=== PATIENT | female | born 2000 | race African-American/Black ===

== ENCOUNTER 2021-04-24 09:42 | Inpatient (IN) | payer MEDICAID ==
[2021-04-24] MEDS ORDERED: fentaNYL 100 MCG/2 ML INJ ONE (10:35)
--- NOTE | 2021-04-24 10:41 | Event Note ---
Date: 04/24/21 Called by RN at 1015am due to not having heart tones via doppler. Both charge nurse and labor and delivery nurse MD at bedised no heart tones noted by both prior to MD arriving. MD at bedside at 1017 and no heart tones notd. Bedside sonogram obtained by myself no heart movement seen. Abdomen very firm the entire time. Pt having cyclical pain. Official sonogram done. NO FCA could be seen. I advised pt and her fob that the likely had an abruption and has have had a demise which was now confirmed by 2 sonograms. I advised that the baby has . Pt screaming. FOB states that pt had some bleeding and pain that started at 6am. Bleeding was just spotting as per pt. Pt called office and was advised to f/u in triage JAY JAY. He states that pain got progressively worse and abdomen got hard. This is when they presented to hospital today. Will speak with pt regarding plan for delivery after her and fob have had time to process the information of the .
[2021-04-24] MEDS ORDERED: LACTATED RINGERS 1,000 ML ONE (10:42)
[2021-04-24 10:53] LABS: Hematocrit 26.8 % (30.3-42.9); Hemoglobin 8.5 gm/dl (10.1-14.3); Mean Corpuscular HGB Conc 32 % (30-34); Mean Corpuscular Volume 84 fl (79-97); Platelet Count 180 K/mm3 (140-440); Red Blood Count 3.21 M/mm3 (3.65-5.03); Red Cell Distribution Width 14.8 % (13.2-15.2)
[2021-04-24] MEDS ORDERED: LACTATED RINGERS 1000 ML IV SOLN IV SCH (11:00)
--- NOTE | 2021-04-24 11:02 | Ultrasound Report ---
ULTRASOUND OBSTETRIC LIMITED INDICATION / CLINICAL INFORMATION: decreased movement. TECHNIQUE: Transabdominal. COMPARISON: None available. FINDINGS: Single IUP without heart tones detected, compatible with demise. Heterogeneous placental echotexture with limited blood flow throughout the placenta, concerning for placental abruption. Ther e is no retroplacental hematoma identified. Information regarding the critical finding(s) was communicated to Dr. JESSICA VEGA MD by Dr. Marco Antonio Naranjo MD, via telephone on 04/24/2021 9:57 AM Signer Name: Venkatesh Naranjo MD Signed: 04/24/2021 10:58 AM Workstation Name: [id number]
[2021-04-24 11:13] LABS: Alanine Aminotransferase 21 units/L (7-56); Albumin 3.6 g/dL (3.9-5); Blood Urea Nitrogen 9 mg/dL (7-17); Calcium 9.3 mg/dL (8.4-10.2); Hemolysis Index 7
[2021-04-24 11:14] LABS: BUN/Creatinine Ratio 18
--- NOTE | 2021-04-24 11:22 | History and Physical Report ---
History of Present Illness Date of examination: 04/24/21 Date of admission: 04/24/21 Chief complaint: abdominal pain History of present illness: Called by RN at 1015am due to not having heart tones via doppler. Both charge nurse and labor and delivery nurse MD at bedised no heart tones noted by both prior to MD arriving. MD at bedside at 1017 and no heart tones notd. Bedside sonogram obtained by myself no heart movement seen. Abdomen very firm the entire time. Pt having cyclical pain. Official sonogram done. NO FCA could be seen. I advised pt and her fob that the likely had an abruption and has have had a demise which was now confirmed by 2 sonograms. I advised that the baby has . Pt screaming. FOB states that pt had some bleeding and pain that started at 6am. Bleeding was just spotting as per pt. Pt called office and was advised to f/u in triage JAY JAY. He states that pain got progressively worse and abdomen got hard. This is when they presented to hospital today. Will speak with pt regarding plan for delivery after her and fob have had time to process the information of the . Pt has been complicated by being a [employer] for [employer], being RH negative for which she got rhogam at 30 wks as well as had not antibodies at the time Rhogam given on 02/21/21 and finally by having poor weight gain and sono that showed lagging abdominal AC diagnosed at 32 wk visit on 04/16/21 for which referral for follow up with [facility] was generated on day of service one week ago. Past History - Obstetrical History Expected Date of Delivery: 06/08/21 Actual Gestation: 33 Week(s) 4 Day(s) : 1 Medications and Allergies Allergies Allergy/AdvReac Type Severity Reaction Status Date / Time No Known Allergies Allergy Unverified 04/24/21 10:03 Active Meds: Active Medications Fentanyl (Fentanyl 100 Mcg/2 Ml Inj) 100 mcg IV ONCE ONE Stop: 04/24/21 12:01 Lactated Ringer's (Lactated Ringers 1000 Ml Iv Soln) 1,000 ml IV DIRECT MARY - Vital Signs Vital signs: Vital Signs Pulse Ox 87 04/24/21 09:52 Temp Pulse Resp BP Pulse Ox 97.6 F 124 H 122/66 92 04/24/21 10:12 04/24/21 11:07 04/24/21 10:13 04/24/21 11:07 Results Result Diagrams: 04/24/21 10:30 04/24/21 10:30 Abnormal lab results 04/24/21 04/24/21 Range/Units 10:30 10:30 WBC 13.3 H (4.5-11.0) K/mm3 RBC 3.21 L (3.65-5.03) M/mm3 Hgb 8.5 L (10.1-14.3) gm/dl Hct 26.8 L (30.3-42.9) % MCH 27 L (28-32) pg Carbon Dioxide 17 L (22-30) mmol/L Creatinine 0.5 L (0.6-1.2) mg/dL Alkaline Phosphatase 322 H (35-129) units/L Albumin 3.6 L (3.9-5) g/dL All other labs normal. Assessment and Plan - Patient Problems (1) 33 weeks gestation of Current Visit: Yes Status: Acute (2) demise, greater than 22 weeks, antepartum Current Visit: Yes Status: Acute Qualifiers: Fetus number: single or unspecified fetus Qualified Code(s): O36.4XX0 - Maternal care for intrauterine , not applicable or unspecified Plan to address problem: -i d/w pt mode of delivery and recommend trial of labor with vaginal delivery -pt agrees -all risk, benefits and alternatives were d/w pt and all questions were addressed and answered. (3) Rh negative status during in third trimester, antepartum Current Visit: Yes Status: Acute
[2021-04-24] MEDS: BUTORPHANOL 2 MG/1 ML INJ IV PRN ×2 (11:51→15:18)
[2021-04-24] MEDS ORDERED: ACETAMINOPHEN 325 MG TAB PO PRN (12:00)
[2021-04-24] MEDS ORDERED: METHYLERGONOVINE MALEATE 0.2 MG/ML VIAL IM PRN (12:00)
[2021-04-24] MEDS ORDERED: MINERAL OIL 30 ML ORAL LIQD PO PRN (12:00)
[2021-04-24] MEDS ORDERED: ONDANSETRON 4 MG/2 ML INJ IV PRN (12:00)
[2021-04-24] MEDS ORDERED: TERBUTALINE 1 MG/1 ML INJ SUB-Q PRN (12:00)
[2021-04-24] MEDS ORDERED: miSOPROStol 200 MCG TAB PR PRN (12:00)
[2021-04-24] MEDS ORDERED: LOPERAMIDE 2 MG CAP PO PRN (12:00)
[2021-04-24] MEDS ORDERED: PROMETHAZINE 25 MG TAB PO PRN (12:00)
[2021-04-24] MEDS ORDERED: OXYTOCIN 10 UNIT/1 ML INJ IM PRN (12:00)
[2021-04-24] MEDS ORDERED: NALOXONE 0.4 MG/1 ML INJ IV PRN (12:00)
[2021-04-24] MEDS ORDERED: LIDOCAINE (2%) 20 MG/1 ML VIAL 20 ML MDV INFILTRATI SCH (12:00)
[2021-04-24] MEDS ORDERED: NalbUPHINE 10 MG/1 ML INJ IV PRN (12:00)
[2021-04-24] MEDS ORDERED: ePHEDrine SULFATE 50 MG/1 ML INJ IV PRN ×2 (12:00→16:43)
[2021-04-24] MEDS ORDERED: OXYTOCIN DRIP 30 UNITS/500 ML BAG IV SCH (12:00)
[2021-04-24] MEDS ORDERED: CARBOPROST TROMETHAMINE 250 MCG/1 ML INJ IM PRN (12:00)
[2021-04-24] MEDS ORDERED: fentaNYL 100 MCG/2 ML INJ IV ONE (12:00)
[2021-04-24] MEDS ORDERED: OXYTOCIN DRIP 30,000 MILLIUNITS/500 ML BAG IV ONE (15:43)
--- NOTE | 2021-04-24 15:43 | Event Note ---
Date: 04/24/21 CNM called to bedside. Pt reports pain and desires for epidural. SVE performed . POC d/w pt and FOC. All questions and concerns addressed. Pt verbalizes understanding and agrees to POC. RN made aware. Orders placed in EMR. Anticipate .
[2021-04-24] MEDS ORDERED: NALOXONE 2 MG/2 ML INJ IV PRN (16:43)
--- NOTE | 2021-04-24 16:52 | Anesthesia Consultation ---
Anesthesia Consult and Med Hx Date of service: 04/24/21 - Airway Anesthetic Teeth Evaluation: Poor Mental/Hyoid Distance: Adequate Mallampati Class: Class II Intubation Access Assessment: Probably Good - Pulmonary Exam CTA: Yes - Cardiac Exam Cardiac Exam: RRR - Pre-Operative Health Status ASA Pre-Surgery Classification: ASA2 Proposed Anesthetic Plan: Epidural - Pulmonary Hx Smoking: No Hx Asthma: No Hx Respiratory Symptoms: No SOB: No COPD: No Home Oxygen Therapy: No Hx Pneumonia: No Hx Sleep Apnea: No - Cardiovascular System Hx Hypertension: No Hx Coronary Artery Disease: No Hx Heart Attack/AMI: No Hx Angina: No Hx Percutaneous Transluminal Coronary Angioplasty (PTCA): No Hx Cardia Arrhythmia: No Hx Pacemaker: No Hx Internal Defibrillator: No Hx Valvular Heart Disease: No Hx Heart Murmur: No Hx Peripheral Vascular Disease: No - Central Nervous System Hx Neuromuscular Disorder: No Hx Seizures: No Hx Back Pain: Yes Hx Psychiatric Problems: No - Gastrointestinal Hx Ulcer: No Hx Gastroesophageal Reflux Disease: No - Endocrine Hx Renal Disease: No Hx End Stage Renal Disease: No Hx Cirrhosis: No Hx Liver Disease: No Hx Insulin Dependent Diabetes: No Hx Non-Insulin Dependent Diabetes: No Hx Thyroid Disease: No Hx Hypothyroidism: No Hx Hyperthyroidism: No - Hematic Hx Anemia: No Hx Sickle Cell Disease: No - Other Systems Hx Alcohol Use: No Hx Substance Use: No Hx Cancer: No Hx Obesity: No
[2021-04-24] MEDS: fentaNYL-BUPIV 2 MCG/ML-0.125% 200 MCG/100 ML BAG EPIDURAL SCH (17:51)
--- NOTE | 2021-04-24 17:51 | Progress Note ---
Labor Epidural - Labor Epidural Start Time: 17:10 Stop Time: 17:25 Performed by:: DEJAH DE LA ROSA Procedure: Patient is requesting a laboring epidural for laboring pain. Patient IDed, H&P reviewed, all questions and concerns were answered, and consent was signed. Timeout was performed at bedside. Patient in sitting position. Sterile prep and drape was performed. [3] ml of 1% lidocaine skin wheal at L[3]- L [4]. 18- gauge Tuohy epidural needle was advanced to loss of resistance with saline technique. Negative CSF negative blood. Epidural catheter advanced to [12] centimeters. [NEGATIVE] Aspiration [NEGATIVE] test dose. Sterile dressing applied. Patient tolerated procedure.
[2021-04-24 18:24] LABS: Amphetamine Screen,Urine Negative; Benzodiazepines Screen,Urine Negative; Cocaine Screen,Urine Negative; Methadone Screen,Urine Negative; Opiate Screen,Urine Negative
[2021-04-24 18:37] LABS: Cannabinoid Screen,Urine Positive
[2021-04-24] MEDS: LACTATED RINGERS 1,000 ML IV SCH (22:29)
[2021-04-25] MEDS: fentaNYL-BUPIV 2 MCG/ML-0.125% 200 MCG/100 ML BAG EPIDURAL SCH (01:46)
--- NOTE | 2021-04-25 06:23 | Event Note ---
Date: 04/25/21 Pt comfortable s/p epidural bolus. POC d/w pt with risks and benefits, including labor augmentation with AROM. Questions encouraged and answered. Pt verbalizes understanding and agrees to POC. SVE 3.5/90%/-1 AROM clear fluid. Pt tolerated well. Continue Pitocin per protocol. Anticipate .
[2021-04-25] MEDS: LACTATED RINGERS 1,000 ML IV SCH (07:35)
[2021-04-25] MEDS ORDERED: WITCH HAZEL/ GLYCERIN PAD TP PRN (09:38)
[2021-04-25] MEDS ORDERED: PROMETHAZINE 25 MG RECT SUPP PR PRN (09:38)
[2021-04-25] MEDS ORDERED: ONDANSETRON 4 MG/2 ML INJ IV PRN (09:38)
[2021-04-25] MEDS ORDERED: ACETAMINOPHEN 325 MG TAB PO PRN (09:38)
[2021-04-25] MEDS ORDERED: HYDROcodone/ACETAMINOPHEN 5-325 MG TAB PO PRN (09:38)
[2021-04-25] MEDS ORDERED: MAGNESIUM HYDROXIDE (MOM) ORAL LIQD UDC PO PRN (09:38)
[2021-04-25] MEDS ORDERED: diphenhydrAMINE 25 MG CAP PO PRN (09:38)
[2021-04-25] MEDS ORDERED: LANOLIN/ZINC/DIMETHICONE (LANSINOH) 7 GM TP PRN (09:38)
[2021-04-25] MEDS ORDERED: PROMETHAZINE 25 MG TAB PO PRN (09:38)
--- NOTE | 2021-04-25 09:38 | Procedure Note ---
OB Delivery Note - Delivery Date of Delivery: 04/25/21 Surgeon: SCOTT VIZCARRA Estimated blood loss: 100cc - Vaginal Delivery presentation: vertex Delivery position: OP Intrapartum events: other(please specify) (Intrauterine demise, suspected placental abruption) Delivery induction: oxytocin Delivery augmentation: rupture of membranes, pitocin Delivery monitor: external uterine Route of delivery: Delivery placenta: spontaneous Episiotomy: none Delivery laceration: none Anesthesia: epidural Delivery comments: Patient admitted with IUFD for IOL. With good maternal pushing effort, a nonviable male was delivered in LOP position. 0. Placenta delivered spontaneously and intact. On inspection complete abruption noted with large clot. No laceration noted. Patient tolerated procedure well. - A at 1 minute: 0 at 5 minutes: 0 Infant Gender: Male (2150g)
--- NOTE | 2021-04-25 12:37 | Post Anesthesia Evaluation ---
- Post Anesthesia Evaluation Patient Participated: Yes Airway Patent: Yes Stable Respiratory Function: Yes Nausea/Vomiting: No Temp > 96.8F: Yes Pain Manageable: Yes Adequeate Hydration: Yes Anesthesia Complications: No Block Receding Appropriately: Yes Patient on Ventilator: No
[2021-04-25] MEDS: PRENATAL VIT27-FE FUMARATE-FOLIC ACID VIT TAB PO SCH (18:11)
[2021-04-25] MEDS: DOCUSATE SODIUM 100 MG CAP PO SCH (18:11)
[2021-04-25] MEDS: IBUPROFEN 600 MG TAB PO SCH (18:12)
[2021-04-26 00:11] LABS: Hemoglobin 6.2 gm/dl (10.1-14.3)
[2021-04-26 00:23] LABS: Hematocrit 18.9 % (30.3-42.9)
[2021-04-26] MEDS: DOCUSATE SODIUM 100 MG CAP PO SCH ×2 (00:26→10:19)
[2021-04-26] MEDS: IBUPROFEN 600 MG TAB PO SCH ×2 (00:26→06:04)
[2021-04-26] MEDS ORDERED: SODIUM CHLORIDE 0.9% 500 ML 500 ML IV ONE ×2 (01:07→03:15)
[2021-04-26] MEDS ORDERED: ACETAMINOPHEN 325 MG TAB PO ONE (01:08)
[2021-04-26] MEDS ORDERED: diphenhydrAMINE 50 MG CAP PO NR (02:00)
--- NOTE | 2021-04-26 08:24 | Event Note ---
Date: 04/26/21 LATE ENTRY Received call from Lawanda at 0100. Patient H/H 6.218. Recommend transfusion of 2 units pRBCS. Patient amenable to receiving blood. Orders given.
--- NOTE | 2021-04-26 09:08 | Progress Note ---
Assessment and Plan - Patient Problems (1) Normal spontaneous vaginal delivery Current Visit: Yes Status: Acute Plan to address problem: Continue routine care (2) Acute blood loss anemia Current Visit: Yes Status: Acute Plan to address problem: 2 units pRBCS, last currently infusing Post-transfusion CBC in four hours Ferrous sulfate BID (3) Rh negative status during in third trimester, antepartum Current Visit: Yes Status: Acute Plan to address problem: screen, RH negative Rhogam not indicated Subjective - Subjective Date of service: 04/26/21 Principal diagnosis: s/p , IUFD Interval history: Patient is PPD #1 s/p following IUFD complicated by placental abruption. Patient alseep and easily aroused. Voices no complaints. Tolerating diet, ambulating, and voiding. Notes scant bleeding. POC discussed. Will likely discharge following completing of blood that is currently infusing. Patient reports: appetite normal, voiding normally, pain well controlled, ambulating normally [place]: Objective - Vital Signs Latest vital signs: Vital Signs Temp Pulse Resp BP BP Pulse Ox Pulse Ox 04/26/21 07:54 18 100/63 04/26/21 07:50 97.7 F 64 18 100/63 04/26/21 07:35 97.3 F L 18 99/61 04/26/21 07:14 98.0 F 64 16 101/68 04/26/21 06:44 97.8 F 66 16 98/63 04/26/21 06:29 97.7 F 68 16 97/59 04/26/21 05:37 68 18 99/64 04/26/21 05:07 97.4 F L 63 18 96/55 04/26/21 04:37 98.0 F 66 18 98/56 04/26/21 04:07 98.0 F 65 18 98/54 04/26/21 03:52 97.8 F 88 18 95/45 04/26/21 00:50 97.4 F L 104 H 16 119/70 99 04/25/21 20:24 99.1 F 104 H 16 118/77 99 04/25/21 19:30 99 04/25/21 16:45 98.2 F 106 H 20 95/68 04/25/21 11:55 99.6 F 109 H 20 124/83 99 99 10/23/21 11:15 100 H 122/59 10/23/21 11:00 98 H 122/64 04/25/21 10:46 98 H 111/66 04/25/21 10:43 109 H 145/95 04/25/21 10:00 106 H 127/67 04/25/21 09:45 122 H 124/82 04/25/21 09:30 137 H 141/65 04/25/21 09:15 141 H 128/74 Intake and Output 04/25/21 04/26/21 04/26/21 23:59 07:59 15:59 Intake Total 680 1070 Output Total 300 Balance 380 1070 Intake: Oral 680 100 Intake, Free Water 720 Blood Product 250 Leukoreduced Red Blood 250 Cells Unit [id number] Leukoreduced Red Blood 0 Cells Unit [id number] Output: Urine 300 Void 300 Other: Total, Intake Amount 360 100 Total, Output Amount 300 # Voids Void 1 1 - Exam Abdomen: Present: soft Uterus: Present: firm, fundal height below umbilicus Extremities: Present: normal - Labs Labs: Abnormal lab results 04/24/21 04/25/21 Range/Units 10:30 23:53 Hgb 6.2 L (10.1-14.3) gm/dl Hct 18.9 L* D (30.3-42.9) % Crossmatch See Detail
[2021-04-26 09:21] VITALS: BP 105/69
[2021-04-26] MEDS: PRENATAL VIT27-FE FUMARATE-FOLIC ACID VIT TAB PO SCH (10:20)
--- NOTE | 2021-04-26 15:10 | Event Note ---
Date: 04/26/21 RN called and informed me that patients not present on the unit. Patient has been called and no answer. Alvino has eloped from the unit.
== END 2021-04-26 14:00 | disposition left against medical advice (07) | DRG 775 ==
LOC: TRG 09:42 → APU 09:43 → LD 11:22 → TRG 13:06 → LD 13:07 → OB 04-25 12:11
PROVIDERS: ADMIT Obstetrics & Gynecology; ATTEND Obstetrics & Gynecology
PROC: 10E0XZZ Delivery of Products of Conception, External Approach (ICD-10-PCS; principal; 2021-04-25)
PROC: 3E033VJ Introduction of Other Hormone into Peripheral Vein, Percutaneous Approach (ICD-10-PCS; 2021-04-25)
PROC: 3E0R3BZ Introduction of Anesthetic Agent into Spinal Canal, Percutaneous Approach (ICD-10-PCS; 2021-04-25)
PROC: 00HU33Z Insertion of Infusion Device into Spinal Canal, Percutaneous Approach (ICD-10-PCS; 2021-04-25)
PROC: 3E0234Z Introduction of Serum, Toxoid and Vaccine into Muscle, Percutaneous Approach (ICD-10-PCS; 2021-04-25)
PROC: 30233N1 Transfusion of Nonautologous Red Blood Cells into Peripheral Vein, Percutaneous Approach (ICD-10-PCS; 2021-04-26)
DX: O36.4XX0 Maternal care for intrauterine death, not applicable or unspecified (principal); Z3A.33 33 weeks gestation of pregnancy; D62 Acute posthemorrhagic anemia; Z20.822 Contact with and (suspected) exposure to COVID-19; Z37.1 Single stillbirth; O75.89 Other specified complications of labor and delivery; O90.81 Anemia of the puerperium; Z53.29 Procedure and treatment not carried out because of patient's decision for other reasons
CPT/HCPCS: 36415; 76815; 80053; 80307; 85014; 85018; 85027; 85461; 86592; 86644; 86645; 86762; 86777; 86778; 86850; 86870; 86900; 86901; 86920; 86922; 87529; 88307; G0378; J0595; J2405; J2590; J2790; J7040; J7120; P9016; U0003